=== PATIENT | female | born 1980 | race Caucasian/White ===

== ENCOUNTER 2024-10-05 14:02 | Emergency (ER) | payer OTHER, SELFPAY ==
[2024-10-05 14:05] VITALS: BP 158/99
[2024-10-05 14:34] LABS: % Basophils 0.6 % (0-2); % Eosinophils 0.7 % (0-6); % Immature Granulocytes 0.4 % (0-0.5); % Lymphocytes 22.4 % (20.5-51.1); % Monocytes 5.3 % (1.7-9.3); % Neutrophils 70.6 % (42.2-75.2); Absolute Basophils 0.1 10^3/uL (0-0.2); Absolute Eosinophils 0.1 10^3/uL (0-0.7); Absolute Lymphocytes 2.1 10^3/uL (1.2-3.4); Absolute Monocytes 0.5 10^3/uL (0.1-0.6); Absolute Neutrophils 6.6 10^3/uL (1.4-6.5); Hematocrit 36.1 % (37.0-47.0); Hemoglobin 11.8 g/dL (12.0-16.0); Mean Corp Hgb Conc. 32.7 g/dL (33.0-37.0); Mean Corpuscular Hgb 27.6 pg (27.0-31.0); Mean Corpuscular Volume 84.3 fL (81.0-99.0); Mean Platelet Volume 10.4 fL (7.4-10.4); Nucleated Red Blood Cells % 0 %; Platelet Count 280 10^3/uL (130-400); Red Blood Cell Count 4.28 10^6/uL (4.20-5.40); Red Cell Dist. Width 14.3 % (11.5-14.5); White Blood Cell Count 9.4 10^3/uL (4.8-10.8)
[2024-10-05 14:44] LABS: ALT (SGPT) 17 U/L (0-35); AST (SGOT) 22 U/L (14-36); Albumin 4.3 g/dl (3.5-5.0); Alkaline Phosphatase 97 U/L (38-126); Blood Urea Nitrogen 12 mg/dl (7-17); Calcium 9.8 mg/dl (8.4-10.2); Carbon Dioxide 25 mmol/L (22-30); Chloride 105 mmol/L (98-107); Glucose 105 mg/dl (70-99); Potassium 3.9 mmol/L (3.5-5.1); Sodium 139 mmol/L (135-145); Total Bilirubin 0.5 mg/dl (0.2-1.3); Total Protein 7.4 g/dl (6.3-8.2); eGFR > 60.00
[2024-10-05 14:56] LABS: Troponin I 0.019 ng/ml
--- NOTE | 2024-10-05 15:37 | ED.GENMED ---
History of Present Illness
General
Chief Complaint: Blood Pressure Problem
Source: patient
Exam Limitations: none
Time Seen by Provider: 10/05/24 15:16
Nursing documentation reviewed up to this point in time: agreed with
History of Present Illness
History of Present Illness:
Patient is a 43-year-old female with history hypertension presenting to the emergency department from PCP office for evaluation of intermittent left-sided chest tightness with EKG changes. Patient reports waking up yesterday morning and noticing a
mild tightness across her left mid chest, mild nausea, and mild headache. No radiation of pain into back or jaw. Patient denies any associated shortness of breath or dizziness.
Patient was seen by her primary care provider today given the symptoms where she had an abnormal EKG and was found to be hypertensive at the office and referred to the emergency department for further evaluation.
By my assessment�patient appears mildly anxious although is otherwise asymptomatic denying any chest pain, nausea, or headache.
Patient does have a history of hypertension and was taking metoprolol up until about 6 months ago as it was giving her headaches. She believes her blood pressure has been under well control since coming off of metoprolol.
Review of Systems
Review of Systems
Allergies reviewed?: Yes
All Other Systems: ROS reviewed and negative except as documented in HPI and ROS
Phy Exam
Physical Exam
Physical Exam:
Vitals: Hypertensive, tachycardic
General: Patient is well appearing, no acute distress.
Skin: Warm and dry, no rashes or lesions
Head: Normocephalic, atraumatic
Eyes: Sclera nonicteric. EOMs intact. No nystagmus.
Throat: Protecting airway
Neck: Normal ROM, no cervical spine tenderness, no meningismus
Cardiac: Tachycardic, normal rhythm, no murmurs. No reproducible chest wall tenderness. 2+ radial pulses bilaterally
Pulm: Normal respiratory effort, no wheezes, rales, rhonchi heard on exam.
Abdomen: No abdominal tenderness.
Extremities: No evidence of cyanosis or edema. Negative Homans' sign bilaterally. Palpable DP pulses bilaterally.
Neuro: AAOx3. Grossly intact.
Psychiatric: Anxious appearing.
Course
Orders/Labs/Results
Orders:
Orders
10/05/24 14:08
Electrocardiogram (*1) Urgent
Reason for Study: Hypertension, Benign
EKG- Treatment ONCE
10/05/24 14:19
Complete Blood Count/With Diff Urgent
Comprehensive Metabolic Panel Urgent
HCG, Serum Qualitative Screen Urgent
Comment: ADD ON
TSH Reflex To Free T4 Urgent
Comment: ADD ON
Troponin I Urgent
10/05/24 15:45
Cardiac Monitoring- Treatment ONCE
10/05/24 15:56
Add On- LAB Urgent
Tests Added?: hcg qualitative
10/05/24 16:08
Add On- LAB Urgent
Tests Added?: TSH reflex Free T4
10/05/24 16:39
CARDIOLOGY CONSULT Urgent
Consulting Provider: Ramón Renee
Was physician already notified: Yes
10/05/24 16:49
Echo 2D MMode Color/Doppler Routine
Reason for Study: chest discomfort, tachycardia, abnormal EKG
10/05/24 17:20
Electrocardiogram (*1) Urgent
Reason for Study: Chest Pain
EKG- Treatment ONCE
10/05/24 17:44
D-Dimer Routine
Troponin I Urgent
10/05/24 18:33
EKG with chest pain [ECG as needed] As Directed
ECG as needed for:: Chest Pain
10/05/24 19:14
Nebivolol HCl [Bystolic] 5 mg PO NOW STA
Abnormal Lab Results
10/05/24
14:19
Hgb 11.8 L g/dL
(12.0-16.0)
Hct 36.1 L %
(37.0-47.0)
MCHC 32.7 L g/dL
(33.0-37.0)
Absolute Neuts (auto) 6.6 H 10^3/uL
(1.4-6.5)
Glucose 105 H mg/dl
(70-99)
10/05/24 14:19
10/05/24 14:19
Vital Signs
Initial and Last Documented VS:
Initial Vital Signs
Temp Pulse Resp BP Pulse Ox
98.4 F 131 18 158/99 100
10/05/24 14:05 10/05/24 14:05 10/05/24 14:05 10/05/24 14:05 10/05/24 14:05
Last Documented Vital Signs
Temp Pulse Resp BP Pulse Ox
98.4 F 97 12 136/71 99
10/05/24 14:05 10/05/24 19:15 10/05/24 19:15 10/05/24 19:00 10/05/24 19:15
MDM/Problems Addressed
Differential Diagnosis Includes:
Not limited to: Muscle strain, costochondritis, symptomatic hypertension, pericarditis, myocarditis, acute coronary syndrome, pulmonary embolism, etc.
MDM/Problems Addressed:
43 y.o female presenting with intermittent atypical chest pain associated with mild headache and nausea occurring since yesterday. Sent by PCP after found to be hypertensive w/ abnormal EKG in office. No exertional or pleuritic component to chest
pain w/o associated SOB. Patient arrived hypertensive and tachycardic, otherwise stable. Physical exam as above. Patient has no risk factors for PE w/ no clinical evidence of DVT on exam. Lower suspicion for acute coronary syndrome given atypical
chest pain although EKG in ED does show some mild ST depressions. Initial troponin sent in triage 0.019. Otherwise labs unremarkable. Will trend troponin and consult cardiology.
Update: Cardiology down to see pt at bedside who then brought patient for cardiac echo which was normal. A d-dimer was sent which was negative. Patients tachycardia has been resolving without intervention - do suspect component of anxiety which
patient endorses, as well. Repeat troponin undetectable. Patient appears very well and comfortable appearing without pain. At this point do not suspect acute coronary syndrome or cardiac chest pain. Repeat labs discussed with cardiology,
Leeann who feel patient can be discharged home on Nebivolol for HTN and cardiology f/u outpatient. They will contact her tomorrow to schedule stress test. Strict return precautions discussed. Patient comfortable with plan.
Chronic conditions affecting care:
Hypertension
Acute Exacerbation and/or Progression of Chronic Illness:
Acutely hypertensive
*Pulse Oximetry
Patient hypoxic: no
*EKG
Interpreted by ED Provider?: Yes
EKG Intrepretation Date: 10/05/24
Interpretation: abnormal
Comparison EKG: no comparison EKG present
Heart Rate: 118
Rate: tachycardiac
Rhythm: sinus
[place]: normal axis
Interval: normal QT interval
QRS Pattern: normal QRS
Ischemia: ST depression
*Manager Critical Care Unit Interpretation
Rate: normal and tachycardiac
Interpretation: abnormal
Heart Rate: 108
Rhythm: sinus
*Critical Care Note
Total Time (30-74mins, 75-104mins- exclusive of procedures): Not Applicable
Data Reviewed
Review of Other/Old Records Reveals: Testing (Cardiac echo 10/05/24 - no abnormalities)
Patient Management
Discussion with other providers: Systems Specialist (Case was discussed with cardiology)
ED Attending Note
-
Portions of this chart may have been created with voice recognition software.� Occasional wrong word or��sound alike� substitutions may have occurred due to the inherent limitations of voice recognition software.
Discharge Plan
Departure
Patient Disposition: Home (Routine Discharge)
Date of Disposition: 10/05/24
Time of Disposition: 19:08
Patient with high blood pressure during this ER visit?: Yes
Condition: Good
Covid-19: Not Applicable
Discharge Problem:
Hypertension, Chest pain
Instructions: High Blood Pressure (DC), Chest Pain CBC Follow Up, BLOOD PRESSURE
Prescriptions:
New
nebivolol 5 mg tablet
5 mg PO DAILY Qty: 30 0RF
Referrals:
Ramón Renee MD [Active] - Call in 1-3 days for appt
Brittany Abraham DO [Family Provider] -
Activity Restrictions/Additional Instructions:
Return to the emergency department with any chest pain, shortness of breath, persistent nausea, lightheadedness, severe back pain, worsening current symptoms, or any other concerns
-As discussed�you were started on a new blood pressure medication in the emergency department. You should take this once a day.
-It is important stay well-hydrated. Of overly strenuous activities until cleared by cardiology.
-Follow-up with cardiology for further evaluation/management. They should be contacting you shortly to set up a stress test outpatient.
Monitor your symptoms closely and return to the emergency department with any acute worsening/new symptoms or any other concerns
Interventions
Interventions:
*Risk Screen - Suicide Last Done: 10/05/24 14:05
*General Assessment Last Done: 10/05/24 14:05
*Neglect/Abuse Screening Last Done: 10/05/24 14:05
*ED- Fall Risk Assessment Last Done: 10/05/24 19:30
*ED COVID-19 Vaccine History Last Done: 10/05/24 14:05
*Nursing Disposition Last Done: 10/05/24 19:30
ED- Cardiac Assessment Last Done: 10/05/24 16:28
ED- Neurological Assessment Last Done: 10/05/24 16:28
ED- Pulmonary Assessment Last Done: 10/05/24 16:28
Discharge Date and Time
Discharge Date/Time: 10/05/24 19:32
Print Language: EMIRATI
[2024-10-05 16:00] VITALS: BP 137/72
--- NOTE | 2024-10-05 16:18 | CON.CAR ---
Addendum entered and electronically signed by Ramón Renee MD 10/05/24 17:40:
I saw and examined the patient.
The RN ORTHO's note was reviewed and I agree with the note.
Comment: 43 y/o female with hypertension (formerly on metoprolol) and acid reflex (formerly on pantoprazole) who is here from her PCP office for abnormal EKG and hypertension. Briefly, she felt poorly yesterday with nausea, MURRAY, and left-sided chest
squeeze. This is atypical CP and never occurs with exercise; in fact she says it improves. It is unclear as the exact cause but appears non-cardiac in nature. However, she is tachycardic and could be related to anxiety for chest pressure.
- awaiting 2nd trop if normal then we will arrange for outpatient stress test
- d-dimer pending consider CT/PE if elevated
Original Note:
Consultation
Consultation Request
Date/Time Consultation Requested: 10/05/241604
Date/Time Consultation Performed: 10/05/241614
Requesting Provider: Elva Morales
Performing Provider: Rani BRANHAM for Dr. Renee
Reason for Consultation: chest discomfort, abnormal EKG
Medical History
-
Chief Complaint: hypertension, chest discomfort, nausea, MURRAY's
History of Present Illness:
43 y/o female with hypertension (formerly on metoprolol) and acid reflex (formerly on pantoprazole) who is here from her PCP office for abnormal EKG and hypertension. Briefly, she felt poorly yesterday with nausea, MURRAY, and left-sided chest squeeze.
She wondered if her BP was a problem as she used to be on BP med, but it was stopped months ago due to MURRAY's. Therefore, she went to her PCP today and BP was up and EKG was abnormal, so she was told to come to the ER. She denies any SOB. She tells me
the left-sided chest feeling comes and goes since her HTN diagnosis in the past. She feels it when she is anxious or BP is elevated. It feels better with walking. There is some tenderness to palpation. She is in no distress at the time of my
assessment. BP initially high, but now improved. Her HR is elevated. She does admit to feeling anxious about being here and has a tendency toward feeling anxious.
Past Medical History
Past Medical History: GERD and HTN
Social History
Tobacco: Non-Smoker
Alcohol: None
Family History
Family History: CAD (dad and GF CAD (not premature))
Allergies / Home Medications
Allergy/AdvReac Type Severity Reaction Status Date / Time
No Known Allergies Allergy Unverified 10/05/24 14:07
Review of Systems
-
History Source: Patient
All other systems: Negative unless noted
Cardiac: Chest Pain
Abdomen/GI: Nausea
Neurological: Headache
Physical Exam
Vital Signs
Temp Pulse Resp BP Pulse Ox
98.4 F 131 18 158/99 100
10/05/24 14:05 10/05/24 14:05 10/05/24 16:08 10/05/24 14:05 10/05/24 14:05
Lab Results
10/05/24 14:19
10/05/24 14:19
Troponin I 0.019 ng/ml 10/05/24 14:19
Physical Exam
General: Well Developed, Well Nourished and No Apparent Distress
HEENT: Normocephalic and Anicteric
Respiratory: Clear and Non Labored Respirations
Cardiac: Regular Rhythm
Musculoskeletal: No Edema
Skin: Warm and Dry
Neuro: AO x 3
Psych: Calm
Impression / Plan
-
Chest discomfort:
-some typical and atypical features as described in HPI
-check 2nd troponin, obtain echo
-if trop normal, should have stress test
Abnormal EKG:
-mildly abnormal as described
-no previous EKG for comparison
-obtain echo
Sinus tachycardia:
-obtain echo
-check d-dimer
HTN:
-elevated on arrival, now improved
-likely to need antihypertensive agent
Data Reviewed
-
EKG: Tracing Personally Visualized and interpreted (ST with ST/T abnormality)
Medical Tests (Nuc Med, Echo etc): Other (echo ordered)
Labs: Labs Reviewed by me
[2024-10-05 16:37] LABS: HCG, Serum Qualitative Screen Negative
[2024-10-05 17:10] LABS: TSH Reflex To Free T4 2.22 uIU/ml (0.47-4.68)
[2024-10-05 18:00] VITALS: BP 138/76
[2024-10-05 18:14] LABS: D-Dimer < 0.27 ug/mlFEU (0.00-0.50)
[2024-10-05 18:21] LABS: Troponin I < 0.012 ng/ml
[2024-10-05 19:00] VITALS: BP 136/71
[2024-10-05] MEDS: BYSTOLIC 5 MG PO (19:20)
== END 2024-10-05 19:32 | disposition home or self-care (01) ==
LOC: EMR 14:02
PROVIDERS: Nurse Practitioner; Physician Assistant; CONSULT PHYSICIAN Internal Medicine Cardiovascular Disease; EMERGENCY PHYSICIAN Student in an Organized Health Care Education/Training Program; FAMILY PHYSICIAN Family Medicine
DX: R07.89 Other chest pain (principal); R94.31 Abnormal electrocardiogram [ECG] [EKG]; I10 Essential (primary) hypertension; R00.0 Tachycardia, unspecified
CPT/HCPCS: 99284; 80053; 84443; 84484; 84703; 85025; 85379; 93005; 93306